=== PATIENT | male | born 1930 | race Two or more races ===

== ENCOUNTER 2018-07-20 19:36 | Emergency (ER) | payer OTHER ==
[~2018-07-20] VITALS: Ht 165.1 cm; Wt 77.1 kg
[2018-07-20 20:15] LABS: BASO # 0.1 x10^3/uL (0.0-0.2); BASO % 1 % (0-3); EOS # 0.1 x10^3/uL (0.0-0.7); EOS % 1 % (0-3); HEMATOCRIT 41.8 % (39.0-53.0); HEMOGLOBIN 14.6 g/dL (13.0-17.5); LYMPH # 1.9 x10^3/uL (1.0-4.8); LYMPH % 28 % (24-48); MEAN CORPUSCULAR HEMOGLOBIN 33 pg (25-35); MEAN CORPUSCULAR HGB CONC 35 g/dL (31-37); MEAN CORPUSCULAR VOLUME 96 fL (79-100); MONO # 0.5 x10^3/uL (0.0-1.1); MONO % 8 % (0-9); NEUT # 4.5 x10^3uL (1.8-7.7); NEUT % 64 % (31-73); PLATELET COUNT 224 x10^3/uL (140-400); RED BLOOD COUNT 4.38 x10^6/uL (4.30-5.70); RED CELL DISTRIBUTION WIDTH 13.8 % (11.5-14.5)
[2018-07-20] MEDS ORDERED: KETOROLAC 30 MG/ML VIAL. IV ONE (20:15)
[2018-07-20] MEDS ORDERED: METOCLOPRAMIDE HCL 10 MG/2 ML VIAL. IV ONE (20:15)
[2018-07-20] MEDS ORDERED: IV NORMAL SALINE 1000ML BAG 1,000 ML IV ONE (20:15)
[2018-07-20] MEDS ORDERED: diphenhydrAMINE 50 MG/ML VIAL IVP ONE (20:15)
[2018-07-20 20:41] LABS: CREATININE 1.2 mg/dL (0.7-1.3); GFR 57.3; POTASSIUM 3.7 mmol/L (3.5-5.1)
[2018-07-20 20:47] LABS: ALBUMIN 3.9 g/dL (3.4-5.0); TOTAL BILIRUBIN 0.5 mg/dL (0.2-1.0)
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
[2018-07-20] MEDS ORDERED: hydrALAZINE 20 MG/ML VIAL. IVP ONE (22:00)
[2018-07-20] MEDS ORDERED: METO10TA81 PO (22:10)
[2018-07-20 22:12] VITALS: BP 221/75
== END 2018-07-20 22:28 | disposition home or self-care (01) ==
LOC: ER 19:36
DX: G43.909 Migraine, unspecified, not intractable, without status migrainosus (principal); I16.0 Hypertensive urgency; I10 Essential (primary) hypertension
CPT/HCPCS: 36415; 70450; 80053; 85025; 96374; 96375; 99285; J0360; J1200; J1885; J2765; J7030

== ENCOUNTER 2020-05-05 16:19 | Observation (INO) | payer MEDICARE, MEDICAID ==
[~2020-05-05] VITALS: Ht 160 cm; Wt 75.8 kg
[~2020-05-05 16:19] MED LIST: METO10TA81 PO
--- NOTE | 2020-05-05 17:15 | NUR ---
The patient, MARSHA IRIZARRY, 89 y/o, M admitted by TARA KUNZ MD, was given written information regarding hospital policies, unit procedures and contact persons. Valuables were checked and left at bedside with significant other. Patient is non Cambodian speaking and significant other is translating at bedside. Attempted to inquiry about medical history and she is not fully aware. Patient is intermittently confused and is unable to answer appropriately. She states that she has his medications in the car and will go get them prior to leaving the hospital. Pgd primary for admission orders. Pending a return call back
[2020-05-05 17:18] VITALS: BP 149/74
[2020-05-05 19:00] VITALS: BP 130/73
[2020-05-05] MEDS ORDERED: DEXTROSE 50% 25 GM / 50ML DISP.SYRIN. IV PRN (19:00)
--- NOTE | 2020-05-05 19:14 | RAD ---
AP chest. HISTORY: CHF AP view was taken of the chest. Heart is normal in size. There is a left pacemaker with a ventricular pacing lead. There is no pneumothorax. There is no pleural effusion. There is metallic artifact on t he left unchanged from an old study. There are no acute infiltrates. The patient has not taken a deep inspiration. IMPRESSION: 1. No acute infiltrates. Electronically signed by: Pankaj De Jesus MD (05/05/2020 7:11 PM) [facility]
--- NOTE | 2020-05-05 19:25 | NUR ---
Pt in bed assessment completed vss poc explained pt denied pain at time of assessment, pt reoriented to surroundings and call light bed alarm set will resume care and continue to monitor pt.
[2020-05-05] MEDS ORDERED: METF500T16 PO (19:26)
[2020-05-05] MEDS ORDERED: SACU1TAB7 PO (19:26)
[2020-05-05] MEDS ORDERED: NITR0.4T22 SL (19:26)
[2020-05-05] MEDS ORDERED: TAMS0.4C97 PO (19:26)
[2020-05-05] MEDS ORDERED: LIPITOR80 MG PO (19:26)
[2020-05-05] MEDS ORDERED: QUET25TA5 PO (19:26)
[2020-05-05] MEDS ORDERED: CLOP75TA PO (19:26)
[2020-05-05] MEDS ORDERED: METO-239 PO (19:26)
[2020-05-05] MEDS ORDERED: NITROGLYCERIN SUBLINGUAL 0.4 MG BOTTLE OF 25. SL PRN (20:00)
--- NOTE | 2020-05-05 20:13 | PDOC ---
Provider Note Date of Service: DATE: 05/05/20 TIME: 20:11 Provider Note Pt admitted from office.H&P dictated.#[id number]. multiple falls at home , Ataxia r/o recent CVA, CAD,DM,systolic heart failure ,BPH. Justifications for Admission Other Justification TARA KUNZ MD May 05, 2020 20:13
--- NOTE | 2020-05-05 21:14 | HP ---
ADMIT DATE: 05/05/2020 REASON FOR ADMISSION TO THE HOSPITAL: Ataxia, multiple falls at home. Family worried that he could have a stroke. HISTORY OF PRESENT ILLNESS: The patient is an 89-year-old male patient has history of a pacemaker, defibrillator, coronary artery disease, cardiac stents and congestive heart failure. He is on Entresto. He has been able to ambulate with a walker, but lately he has fallen 2 times in last 1 week and when he walks he is stumble to one side and the patient's daughter was concerned that he could have a stroke and the patient usually goes to [facility], but was admitted to [facility] for further investigation and treatment, rule out any acute cerebrovascular event. PAST MEDICAL HISTORY: As mentioned above, has history of congestive heart failure. The patient had COVID infection in December. Diabetes, hypertension, hyperlipidemia, BPH, dementia, coronary artery disease and systolic heart failure. PAST SURGICAL HISTORY: Had a hernia repair. Has a pacemaker defibrillator. He has a cardiac stent. ALLERGIES: No known allergies. MEDICATIONS AT HOME: The patient is on metformin 500 mg twice daily, atorvastatin 80 mg daily, Plavix 75 mg daily, metoprolol 25 mg daily, nitro sublingual, Seroquel 25 mg twice a day, Entresto 49/51 mg twice a day and Flomax 0.4 daily. PERSONAL HISTORY: No history of smoking, alcohol or drug abuse at the present time. The patient lives with significant other and he was ambulating with a walker until recently has is in wheelchair level now. REVIEW OF SYSTEMS: More forgetful and weak on one side when he is moving and multiple falls. The patient is answering questions alright. Denies any problem with slurring of the speech. Has some paresthesias, right side. PHYSICAL EXAMINATION: GENERAL: The patient is an elderly Maori-speaking male. VITAL SIGNS: Temperature 97, pulse 75, respirations 18, blood pressure 149/74 and saturating 98 on room air. HEENT: Head is atraumatic. Pupils equal. Oral cavity: No congestion. NECK: Supple. Thyroid not enlarged. JVD slightly elevated, has a pacemaker defibrillator in left-sided chest. CARDIOVASCULAR: S1, S2. LUNGS: Few crackles at the bases, very minimal wheezing. ABDOMEN: Soft, bowel sounds present. EXTERNAL GENITALIA: No Decker. RECTAL: Deferred. EXTREMITIES: No calf tenderness, no edema. The patient is moving upper extremities equally with good strength. Lower extremities, right leg slightly weaker than the left. Did not check ambulation. He is in wheelchair level at this point. NEUROLOGIC: The patient is responding to questions appropriately, though in Maori. LABORATORY DATA: Pending. CT head pending. Chest x-ray: No acute infiltrates. EKG is pending. FINAL IMPRESSION: 1. Multiple falls in last 1 week, possibility of a stroke. 2. Difficulty in mobility, possible ataxia, leaning to one side when he was walking to the restroom as per the family. 3. Diabetes. 4. Hypertension. 5. Chronic systolic heart failure. 6. Coronary artery disease with history of cardiac stents in the past. 7. Presence of pacemaker defibrillator. 8. Systolic heart failure, on Entresto. 9. Benign prostatic hypertrophy. PLAN: At this time, he was admitted to the hospital. CT head. PT, OT. Neurology consultation and cardiac evaluation and see if we can improve his mobility and ambulation. TARA KUNZ MD DR: PORTER/johnna JOB#: [id number] / [id number] TAMMY
[2020-05-05] MEDS: SACUBITRIL/VALSARTAN 49/51MG TABLET. PO SCH (21:41)
[2020-05-05] MEDS: ATORVASTATIN CALCIUM 40 MG TABLET. PO SCH (21:42)
[2020-05-05] MEDS: QUEtiapine 25 MG TABLET. PO SCH (21:42)
[2020-05-05 21:49] LABS: ALBUMIN 3.5 g/dL (3.4-5.0); ALBUMIN/GLOBULIN RATIO 0.9 (1.0-1.7); CALCIUM 8.6 mg/dL (8.5-10.1); CREATININE 1.3 mg/dL (0.7-1.3); MAGNESIUM 2.1 mg/dL (1.8-2.4); POTASSIUM 4.1 mmol/L (3.5-5.1); TOTAL BILIRUBIN 0.6 mg/dL (0.2-1.0); TOTAL PROTEIN 7.3 g/dL (6.4-8.2)
--- NOTE | 2020-05-05 21:51 | EKG ---
[facility] [address] [place] [address] Test Date: 2020-05-05 Test Time: 20:50:45 Pat Name: MARSHA IRIZARRY Department: Room: [facility] Gender: M Slate Handler: : 1930 Requested By: TARA KUNZ Order Number: [id number] Reading MD: Measurements Intervals [place] Rate: 78 P: 34 ID: [id number] QRS: 44 QRSD: 74 T: -9 QT: 370 QTc: 425 Interpretive Statements SINUS ARRHYTHMIA NO SPECIFIC ECG ABNORMALITIES RI6.01 No previous ECG available for comparison
[2020-05-05 23:23] VITALS: BP 116/68
[2020-05-06 03:21] VITALS: BP 140/67
[2020-05-06 04:26] LABS: BILIRUBIN,URINE NEGATIVE (NEG); CLARITY,URINE CLEAR; COLOR,URINE YELLOW; NITRITE,URINE NEGATIVE (NEG); PROTEIN,URINE NEGATIVE (NEG-TRACE); UROBILINOGEN,URINE 0.2 mg/dL (0.2 mg/dL)
[2020-05-06 04:37] LABS: BACTERIA,URINE 0 /HPF (0-FEW); RBC,URINE 0 /HPF (0-2); WBC,URINE 0 /HPF (0-4)
[2020-05-06 05:36] LABS: BASO # 0.1 x10^3/uL (0.0-0.2); BASO % 1 % (0-3); EOS # 0.2 x10^3/uL (0.0-0.7); EOS % 2 % (0-3); HEMOGLOBIN 11.9 g/dL (13.0-17.5); LYMPH # 2.2 x10^3/uL (1.0-4.8); LYMPH % 27 % (24-48); MEAN CORPUSCULAR HEMOGLOBIN 32 pg (25-35); MEAN CORPUSCULAR HGB CONC 34 g/dL (31-37); MEAN CORPUSCULAR VOLUME 95 fL (79-100); MONO # 0.6 x10^3/uL (0.0-1.1); MONO % 8 % (0-9); NEUT # 5.1 x10^3/uL (1.8-7.7); NEUT % 62 % (31-73); PLATELET COUNT 196 x10^3/uL (140-400); RED CELL DISTRIBUTION WIDTH 15.4 % (11.5-14.5); WHITE BLOOD COUNT 8.1 x10^3/uL (4.0-11.0)
[2020-05-06 07:00] VITALS: BP 139/87
[2020-05-06] MEDS ORDERED: CLOPIDOGREL BISULFATE 75 MG TABLET PO SCH (07:00)
[2020-05-06] MEDS: INSULIN LISPRO 300 UNITS/3 ML VIAL. SQ SCH ×3 (08:00→17:00)
--- NOTE | 2020-05-06 08:10 | PDOC ---
PROGRESS NOTES Date of Service: DATE: 05/06/20 TIME: 08:10 Subjective Subjective awake Objective Objective Vital Signs Date Time Temp Pulse Resp B/P (MAP) Pulse Ox O2 Delivery O2 Flow Rate FiO2 05/06/20 03:21 98.4 78 16 140/67 (91) 95 Room Air 98.4 Intake and Output 05/06/20 07:00 Intake Total 0 ml Output Total 400 ml Balance -400 ml Intake Oral 0 ml Output Urine Total 400 ml Physical Exam Abdomen: Soft Heart: Normal S1, Normal S2 Extremities: No clubbing General: Alert HEENT: Atraumatic Lungs: Clear to auscultation MUSCULOSKELETAL: No deformity Neuro: Normal speech Skin: No breakdown Assessment Assessment FINAL IMPRESSION: 1. Multiple falls in last 1 week, possibility of a stroke. 2. Difficulty in mobility, possible ataxia, leaning to one side when he was walking to the restroom as per the family. 3. Diabetes. 4. Hypertension. 5. Chronic systolic heart failure. 6. Coronary artery disease with history of cardiac stents in the past. 7. Presence of pacemaker defibrillator. 8. Systolic heart failure, on Entresto. 9. Benign prostatic hypertrophy. PLAN: CT head done today. neurology +cardiology consult Rehab consult dr peraza. labs good cxr ok . At this time, he was admitted to the hospital. CT head. PT, OT. Neurology consultation and cardiac evaluation and see if we can improve his mobility and ambulation. Comment Review of Relevant I have reviewed the following items peter (where applicable) has been applied. Labs Laboratory Tests Test 05/05/20 20:35 05/05/20 21:40 05/06/20 02:20 05/06/20 05:00 Sodium Level 136 mmol/L (136-145) Potassium Level 4.1 mmol/L (3.5-5.1) Chloride Level 102 mmol/L (98-107) Carbon Dioxide Level 27 mmol/L (21-32) Anion Gap 7 (6-14) Blood Urea Nitrogen 16 mg/dL (8-26) Creatinine 1.3 mg/dL (0.7-1.3) Estimated GFR (Cockcroft-Gault) 52.0 BUN/Creatinine Ratio 12 (6-20) Glucose Level 167 mg/dL (70-99) Calcium Level 8.6 mg/dL (8.5-10.1) Magnesium Level 2.1 mg/dL (1.8-2.4) Total Bilirubin 0.6 mg/dL (0.2-1.0) Aspartate Amino Transf (AST/SGOT) 20 U/L (15-37) Alanine Aminotransferase (ALT/SGPT) 31 U/L (16-63) Alkaline Phosphatase 71 U/L (46-116) Total Protein 7.3 g/dL (6.4-8.2) Albumin 3.5 g/dL (3.4-5.0) Albumin/Globulin Ratio 0.9 (1.0-1.7) Glucose (Fingerstick) 162 mg/dL (70-99) Urine Collection Type Unknown Urine Color Yellow Urine Clarity Clear Urine pH 6.0 (<5.0-8.0) Urine Specific [place] 1.015 (1.000-1.030) Urine Protein Negative mg/dL (NEG-TRACE) Urine Glucose (UA) Negative mg/dL (NEG) Urine Ketones (Stick) Negative mg/dL (NEG) Urine Blood Negative (NEG) Urine Nitrite Negative (NEG) Urine Bilirubin Negative (NEG) Urine Urobilinogen Dipstick 0.2 mg/dL (0.2 mg/dL) Urine Leukocyte Esterase Negative (NEG) Urine RBC 0 /HPF (0-2) Urine WBC 0 /HPF (0-4) Urine Squamous Epithelial Cells Occ /LPF Urine Bacteria 0 /HPF (0-FEW) Urine Mucus Slight /LPF White Blood Count 8.1 x10^3/uL (4.0-11.0) Red Blood Count 3.70 x10^6/uL (4.30-5.70) Hemoglobin 11.9 g/dL (13.0-17.5) Hematocrit 35.0 % (39.0-53.0) Mean Corpuscular Volume 95 fL (79-100) Mean Corpuscular Hemoglobin 32 pg (25-35) Mean Corpuscular Hemoglobin Concent 34 g/dL (31-37) Red Cell Distribution Width 15.4 % (11.5-14.5) Platelet Count 196 x10^3/uL (140-400) Neutrophils (%) (Auto) 62 % (31-73) Lymphocytes (%) (Auto) 27 % (24-48) Monocytes (%) (Auto) 8 % (0-9) Eosinophils (%) (Auto) 2 % (0-3) Basophils (%) (Auto) 1 % (0-3) Neutrophils # (Auto) 5.1 x10^3/uL (1.8-7.7) Lymphocytes # (Auto) 2.2 x10^3/uL (1.0-4.8) Monocytes # (Auto) 0.6 x10^3/uL (0.0-1.1) Eosinophils # (Auto) 0.2 x10^3/uL (0.0-0.7) Basophils # (Auto) 0.1 x10^3/uL (0.0-0.2) Test 05/06/20 07:50 Glucose (Fingerstick) 140 mg/dL (70-99) Medications Current Medications Atorvastatin Calcium (Lipitor) 80 mg QHS PO Last administered on 05/05/20at 21:42; Start 05/05/20 at 21:00 Clopidogrel Bisulfate (Plavix) 75 mg DAILY PO ; Start 05/06/20 at 09:00 Clopidogrel Bisulfate (Plavix) 75 mg DAILY07 PO ; Start 05/06/20 at 07:00; Stop 05/05/20 at 21:05; Status DC Dextrose (Dextrose 50%-Water Syringe) 12.5 gm PRN Q15MIN PRN IV SEE COMMENTS; Start 05/05/20 at 19:00 Insulin Human Lispro (HumaLOG) 0-7 UNITS TIDWMEALS SQ ; Start 05/06/20 at 08:00 Metoprolol Succinate (Toprol Xl) 75 mg DAILY PO ; Start 05/06/20 at 09:00 Nitroglycerin (Nitrostat) 0.4 mg PRN Q5MIN PRN SL CHEST PAIN; Start 05/05/20 at 20:00 Quetiapine Fumarate (SEROquel) 25 mg BID PO Last administered on 05/05/20at 21:42; Start 05/05/20 at 21:00 Sacubitril/ Valsartan (Entresto 49 Mg-51 Mg) 1 tab BID PO Last administered on 05/05/20at 21:41; Start 05/05/20 at 21:00 Tamsulosin HCl (Flomax) 0.4 mg DAILY PO ; Start 05/06/20 at 09:00 Vitals/I & O Vital Sign - Last 24 Hours 05/05/20 05/05/20 05/05/20 05/05/20 17:18 19:00 19:25 21:41 Temp 97.9 98.5 97.9 98.5 Pulse 75 97 97 Resp 18 18 B/P (MAP) 149/74 (99) 130/73 (92) 130/73 Pulse Ox 98 95 O2 Delivery Room Air Room Air Room Air 05/05/20 05/06/20 23:23 03:21 Temp 98.4 98.4 98.4 98.4 Pulse 71 78 Resp 16 16 B/P (MAP) 116/68 (84) 140/67 (91) Pulse Ox 96 95 O2 Delivery Room Air Room Air Intake and Output 05/05/20 05/05/20 05/06/20 15:00 23:00 07:00 Intake Total 0 ml Output Total 400 ml Balance -400 ml Justifications for Admission Other Justification TARA KUNZ MD May 06, 2020 08:10
[2020-05-06 09:09] LABS: CHOLESTEROL/HDL RATIO 2.6
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
[2020-05-06] MEDS: SACUBITRIL/VALSARTAN 49/51MG TABLET. PO SCH ×2 (09:37→21:16)
[2020-05-06] MEDS: TAMSULOSIN 0.4 MG CAP.ER.24H. PO SCH (09:37)
[2020-05-06] MEDS: QUEtiapine 25 MG TABLET. PO SCH ×2 (09:37→21:16)
[2020-05-06] MEDS: CLOPIDOGREL BISULFATE 75 MG TABLET PO SCH (09:37)
[2020-05-06] MEDS: METOPROLOL SUCC 24HR ER 25 MG TAB.ER.24H. PO SCH (09:38)
[2020-05-06 11:00] VITALS: BP 107/66
--- NOTE | 2020-05-06 11:03 | PDOC2 ---
MOISES GRIMALDO ELIGIBILITY CONSULTANT 05/06/20 1103: CARDIAC CONSULT DATE OF CONSULT Date of Consult DATE: 05/06/20 TIME: 10:34 REASON FOR CONSULT Reason for Consult: CHF REFERRING PHYSICIAN Referring Physician: Gale SOURCE Source: Chart review, Patient HISTORY OF PRESENT ILLNESS HISTORY OF PRESENT ILLNESS This is a pleasant 89 yo male admitted for complains fall. He is a poor historian that rambles and stutters a lot. Pt is currently chest pain free but have some soreness to his right shoulder particularly with palpation but no issues with ROM. No SOA, no leg edema. No nausea or vomiting. He has fallen 2 ti mes in the last week and from what was described possible weakness and gait instability. No unilateral neuro symptoms per se and able to follow instructions during physical evaluation. He is being workup pfor any potential stroke and neurology has been consulted. He sees [facility]. No apparent report of syncope or cardiac symptoms. PAST MEDICAL HISTORY Cardiovascular: CAD, CHF, HTN, Hyperlipidemia, Other (cardiomyopathy; LE PAD) Pulmonary: Other (covid-19 02/16/2020) CENTRAL NERVOUS SYSTEM: Dementia Hepatobiliary: No pertinent hx Psych: Anxiety Musculoskeletal: Osteoarthritis Rheumatologic: No pertinent hx Infectious disease: No pertinent hx ENT: No pertinent hx Renal/: Acute renal failure, Benign prostatic enlarg. Endocrine: Diabetes (2) Dermatology: No pertinent hx PAST SURGICAL HISTORY Past Surgical History: Pacemaker (AICD), Other (PCI) FAMILY HISTORY Family History: Family History Unknown SOCIAL HISTORY Smoke: No ALCOHOL: none Drugs: None Lives: with Family CURRENT MEDICATIONS CURRENT MEDICATIONS Current Medications Medications (Trade) Dose Ordered Sig/Mendoza Route PRN Reason Start Time Stop Time Status Last Admin Dose Admin Metoprolol Succinate (Toprol Xl) 75 mg DAILY PO 05/06/20 09:00 05/06/20 09:38 Quetiapine Fumarate (SEROquel) 25 mg BID PO 05/05/20 21:00 05/06/20 09:37 Sacubitril/ Valsartan (Entresto 49 Mg-51 Mg) 1 tab BID PO 05/05/20 21:00 05/06/20 09:37 Tamsulosin HCl (Flomax) 0.4 mg DAILY PO 05/06/20 09:00 05/06/20 09:37 Atorvastatin Calcium (Lipitor) 80 mg QHS PO 05/05/20 21:00 05/05/20 21:42 Clopidogrel Bisulfate (Plavix) 75 mg DAILY PO 05/06/20 09:00 05/06/20 09:37 ALLERGIES ALLERGIES: Coded Allergies: No Known Drug Allergies (Unverified , 07/20/18) ROS Review of System limited due to language barrier and speech issues and cognitive impairment PHYSICAL EXAM General: Alert, Cooperative, No acute distress HEENT: Atraumatic, Mucous membr. moist/pink Lungs: Clear to auscultation, Normal air movement Heart: Regular rate (SR), Normal S1, Normal S2, Other (2/6 systolic murmur to LLS border) Abdomen: Soft, No tenderness Extremities: No cyanosis, No edema Skin: No breakdown, No significant lesion Neuro: Normal tone, Sensation intact Psych/Mental Status: Other (rambles, stutter speech) MUSCULOSKELETAL: Osteoarthritic changes both hands VITALS/I&O VITALS/I&O: Vital Signs Date Time Temp Pulse Resp B/P (MAP) Pulse Ox O2 Delivery O2 Flow Rate FiO2 05/06/20 09:38 77 139/87 05/06/20 07:00 97.5 16 93 Room Air 97.5 I & O 05/05/20 05/05/20 05/06/20 15:00 23:00 07:00 Intake Total 0 ml Output Total 400 ml Balance -400 ml LABS Lab: Laboratory Tests Test 05/05/20 20:35 05/05/20 21:40 05/06/20 02:20 05/06/20 05:00 Sodium Level 136 mmol/L (136-145) Potassium Level 4.1 mmol/L (3.5-5.1) Chloride Level 102 mmol/L (98-107) Carbon Dioxide Level 27 mmol/L (21-32) Anion Gap 7 (6-14) Blood Urea Nitrogen 16 mg/dL (8-26) Creatinine 1.3 mg/dL (0.7-1.3) Estimated GFR (Cockcroft-Gault) 52.0 BUN/Creatinine Ratio 12 (6-20) Glucose Level 167 mg/dL (70-99) H Calcium Level 8.6 mg/dL (8.5-10.1) Magnesium Level 2.1 mg/dL (1.8-2.4) Total Bilirubin 0.6 mg/dL (0.2-1.0) Aspartate Amino Transferase (AST) 20 U/L (15-37) Alanine Aminotransferase (ALT) 31 U/L (16-63) Alkaline Phosphatase 71 U/L (46-116) Total Protein 7.3 g/dL (6.4-8.2) Albumin 3.5 g/dL (3.4-5.0) Albumin/Globulin Ratio 0.9 (1.0-1.7) L Glucose (Fingerstick) 162 mg/dL (70-99) H Urine Collection Type Unknown Urine Color Yellow Urine Clarity Clear Urine pH 6.0 (<5.0-8.0) Urine Specific [place] 1.015 (1.000-1.030) Urine Protein Negative mg/dL (NEG-TRACE) Urine Glucose (UA) Negative mg/dL (NEG) Urine Ketones (Stick) Negative mg/dL (NEG) Urine Blood Negative (NEG) Urine Nitrite Negative (NEG) Urine Bilirubin Negative (NEG) Urine Urobilinogen Dipstick 0.2 mg/dL (0.2 mg/dL) Urine Leukocyte Esterase Negative (NEG) Urine RBC 0 /HPF (0-2) Urine WBC 0 /HPF (0-4) Urine Squamous Epithelial Cells Occ /LPF Urine Bacteria 0 /HPF (0-FEW) Urine Mucus Slight /LPF White Blood Count 8.1 x10^3/uL (4.0-11.0) Red Blood Count 3.70 x10^6/uL (4.30-5.70) L Hemoglobin 11.9 g/dL (13.0-17.5) L Hematocrit 35.0 % (39.0-53.0) L Mean Corpuscular Volume 95 fL (79-100) Mean Corpuscular Hemoglobin 32 pg (25-35) Mean Corpuscular Hemoglobin Concent 34 g/dL (31-37) Red Cell Distribution Width 15.4 % (11.5-14.5) H Platelet Count 196 x10^3/uL (140-400) Neutrophils (%) (Auto) 62 % (31-73) Lymphocytes (%) (Auto) 27 % (24-48) Monocytes (%) (Auto) 8 % (0-9) Eosinophils (%) (Auto) 2 % (0-3) Basophils (%) (Auto) 1 % (0-3) Neutrophils # (Auto) 5.1 x10^3/uL (1.8-7.7) Lymphocytes # (Auto) 2.2 x10^3/uL (1.0-4.8) Monocytes # (Auto) 0.6 x10^3/uL (0.0-1.1) Eosinophils # (Auto) 0.2 x10^3/uL (0.0-0.7) Basophils # (Auto) 0.1 x10^3/uL (0.0-0.2) BR-Deh-X-Type Natriuretic Peptide 125 pg/mL (0-449) Triglycerides Level 103 mg/dL (0-150) Cholesterol Level 92 mg/dL (0-200) LDL Cholesterol, Calculated 35 mg/dL (0-100) VLDL Cholesterol, Calculated 21 mg/dL (0-40) Non-HDL Cholesterol Calculated 56 mg/dL (0-129) HDL Cholesterol 36 mg/dL (40-60) L Cholesterol/HDL Ratio 2.6 Test 05/06/20 07:50 Glucose (Fingerstick) 140 mg/dL (70-99) H Laboratory Tests 05/06/20 05:00 Laboratory Tests 05/05/20 20:35 ECHOCARDIOGRAM ECHOCARDIOGRAM 06/13/2019 Technically difficult study; i.v. transpulmonary contrast was used to define the endocardial borders. Severely reduced left ventricular systolic function, estimated ejection fraction is 30%, global hypokinesis. Grade I (mild) left ventricular diastolic dysfunction. There is mild mitral annular calcification without stenosis. Mild mitral valve regurgitation, trace tricuspid valve regurgitation. The pulmonary artery pressure could not be obtained. HEART CATH HEART CATH 2004 - s/p PCI x 3 at [facility] 03/04/2019 - Cardiac Cathterization: Severe coronary disease involving mid LAD, 1st diagonal, and 2nd obtuse marginal branch. Successful PCI of mid LAD using 2.75 mm x 23 mm ROBBY. Successful PCI of 2nd obtuse marginal branch with 2.75 mm x 18 mm ROBBY. Elevated LVEDP ASSESSMENT/PLAN ASSESSMENT/PLAN 1. Nontraumatic fall: no reported syncope. Possibly from ataxia 2. AICD in situ: medtronic. VVI 3. PSVT: rare episode otherwise maintaining SR 4. Suspect vascular dementia 5. ICM: Prior EF at 30-35% 6. CAD; prior stents. see report. clinicallys table 7. Chronic combined systolic/diastolic CHF: Class 3, compensated 8. DM2: per PCP 9. HTN: controlled 10. HLP: LDL on goal 11. Recovered Covid-19: 02/16/2020 12. 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 Continue HF home medications 2. Secondary preventiion measures. Continue plavix 3. Interrogate device and note any associated arrhythmia in relation to fall. 4. TSH, CK. TTE. Consult neurology ADITI SUN MD 05/06/202058: CARDIAC CONSULT ASSESSMENT/PLAN ASSESSMENT/PLAN Patient seen and examined. Agree with LANG PATH THERAPIST's assessment and plan. Fall probably from imbalance, not a good historian but no definite history of syncope h/o PSVT, maintaining SR, tele without any significant arrhythmias Chronic systolic HF well compensated CAD clinically stable Agree with ICD interrogation to look for any recorded arrhythmias Thank you for your consultation MOISES GRIMALDO APRN May 06, 2020 11:03 ADITI SUN MD May 06, 2020 20:59
--- NOTE | 2020-05-06 12:43 | NUR ---
SS following for discharge planning. SS reviewed pt chart and discussed with pt RN. Pt is from home with girlfriend and is currently on room air. Pt COVID19 recovered from December of 2019. PT/OT ordered. Cardiology and Neurology consulted. ECHO ordered. PT recommended home with home healthcare. Pt is Tuvaluan speaking only. Nurse navigator from [facility] contacting pt's family to discuss home healthcare. SS will continue to follow for discharge planning.
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
[2020-05-06] MEDS: LEVOTHYROXINE 50 MCG TABLET PO SCH (14:01)
--- NOTE | 2020-05-06 14:23 | CONS ---
DATE OF CONSULTATION: LOCATION: He is in room 206. ATTENDING PHYSICIAN: Catrina Beasley MD REASON FOR CONSULTATION: The patient was seen at the request of Dr. Beasley for rehab evaluation. HISTORY OF PRESENT ILLNESS: This is an 89-year-old male, retired bus driver school. The patient with known diabetes mellitus, hypertension, hyperlipidemia, benign prostatic hypertrophy, dementia, coronary artery disease, systolic heart failure, had a COVID infection in 12/2019, also had permanent pacemaker with defibrillator placement for coronary artery disease, status post coronary artery stenting. He has been getting around and taking care of himself. He lives with his , had no steps to enter the house, but had steps to go down to the basement. The patient apparently having some right-sided neck and shoulder area pain going on for about a year. He lately has been falling a few times, fell 2 times last week and when he walks, he is stumbling on to one side. Family is concerned that he could have a stroke. He usually [facility], was admitted to [facility] for further evaluation and treatment to rule out cerebrovascular accident and CT scan of the brain done on 05/05/2020, revealed no acute findings. It revealed interval development of left frontoparietal infarct, nonacute, when compared to the CT scan done on 07/20/2018. Chest x-ray failed to reveal any acute abnormalities. The patient denies any trouble with his bowel or bladder control. He admits some numbness in his right upper extremity, which has been present for a while. The patient is not known allergic to any medication. The patient is status post hernia repair. PHYSICAL EXAMINATION: On physical examination today revealed an elderly male. He is alert, oriented to time, place, person and circumstance. Follows commands appropriately. He had some pain on range of motion of cervical spine, tenderness to palpation over right cervical paraspinal muscles, extending over to right posterior shoulder girdle muscles. He had relatively decreased sensory perception over proximal part of right upper extremity. Deep tendon reflexes are 2+ and symmetrical and he had no difficulty with bed mobility and transfers. Once up, he can walk with a walker and when walked without roller walker and on his tippy toes, he has some difficulty to walk on his heels and one foot in front of other. His skin is intact at this time. ASSESSMENT: Elderly male with recent falls. No evidence of ongoing cerebrovascular accident. 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 The patient with known coronary artery disease, status post stenting and also permanent pacemaker with defibrillator placement, congestive heart failure, hypertension, hyperlipidemia, benign prostatic hypertrophy, history of dementia and COVID-19 infection in 12/2019. RECOMMENDATIONS: Home when medically stable. With home health or outpatient physical therapy follow up to help his neck and shoulder area discomfort. To obtain CT scan of cervical vertebrae to rule out any significant changes of cervical vertebrae like cervical spinal stenosis. Unfortunately, because of his pacemaker and defibrillator, he is not a candidate for MRI scan. Dr. Beasley, I appreciate asking me to participate in the care of this interesting patient. I will be glad to see him for followup with you on as needed basis. ALICE ORDONEZ MD DR: YUDELKA/johnna JOB#: [id number] / [id number]
[2020-05-06] MEDS ORDERED: SPIR25TA5 PO (14:32)
[2020-05-06 15:00] VITALS: BP 109/58
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
--- NOTE | 2020-05-06 18:04 | RAD ---
Exam: Ultrasound bilateral carotid duplex Indication: Ataxia, possible CVA Technique: Real-time grayscale and color Doppler images of the carotids were obtained by the [facility] foreign agent. Comparisons: None FINDINGS: Peak systolic velocity as follows: Right: Common carotid artery: 93 cm/s Internal carotid artery: 53 cm/s mid and distal portions of the internal carotid artery are not visua lized. External carotid artery: 45 cm/s Left: Common carotid artery: 58 cm/s Internal carotid artery: Nonvisualized secondary to positioning External carotid artery: Nonvisualized secondary to positioning. Extensive plaque is noted throughout the visualized carotid vasculature bilaterally. IMPRESSION: 1. Limited evaluation secondary to anatomical location of carotid bifurcations 2. There is extensive atherosclerotic plaque bilaterally. Consider CTA or MRA for further evaluation . Electronically signed by: Marialuisa Nichols MD (05/06/2020 6:01 PM) BERENICE
[2020-05-06 19:23] VITALS: BP 160/91
[2020-05-06] MEDS: ATORVASTATIN CALCIUM 40 MG TABLET. PO SCH (21:16)
[2020-05-06 22:04] VITALS: BP 156/84
[2020-05-07 03:44] VITALS: BP 115/67
[2020-05-07] MEDS: LEVOTHYROXINE 50 MCG TABLET PO SCH (06:01)
[2020-05-07] MEDS ORDERED: PERFLUTREN PROTEIN-A MICROSPHR 0.22 MG/ML 3 ML VIAL. IV ONE (07:34)
[2020-05-07 07:51] VITALS: BP 176/87
[2020-05-07] MEDS: INSULIN LISPRO 300 UNITS/3 ML VIAL. SQ SCH ×2 (08:00→12:00)
--- NOTE | 2020-05-07 08:11 | PDOC ---
PROGRESS NOTES Date of Service: DATE: 05/07/20 TIME: 08:10 Subjective Subjective want to go home Objective Objective Vital Signs Date Time Temp Pulse Resp B/P (MAP) Pulse Ox O2 Delivery O2 Flow Rate FiO2 05/07/20 07:51 97.9 79 16 176/87 (116) 97 Room Air 97.9 Intake and Output 05/07/20 07:00 Intake Total 640 ml Balance 640 ml Intake Oral 640 ml # Voids 4 Physical Exam Abdomen: Soft, No tenderness Heart: Regular rate (SR), Normal S1, Normal S2, Other (2/6 systolic murmur to LLS border) Extremities: No cyanosis, No edema General: Alert, Cooperative, No acute distress HEENT: Atraumatic, Mucous membr. moist/pink Lungs: Clear to auscultation, Normal air movement MUSCULOSKELETAL: Osteoarthritic changes both hands Neuro: Normal tone, Sensation intact Psych/Mental Status: Other (rambles, stutter speech) Skin: No breakdown, No significant lesion Assessment Assessment FINAL IMPRESSION: 1. Multiple falls in last 1 week, possibility of a stroke. 2. Difficulty in mobility, possible ataxia, leaning to one side when he was walking to the restroom as per the family. 3. Diabetes. 4. Hypertension. 5. Chronic systolic heart failure. 6. Coronary artery disease with history of cardiac stents in the past. 7. Presence of pacemaker defibrillator. 8. Systolic heart failure, on Entresto. 9. Benign prostatic hypertrophy. 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 labs good cxr ok . Not able to do MRI due to AICD d/c home with home health Comment Review of Relevant I have reviewed the following items peter (where applicable) has been applied. Labs Laboratory Tests Test 05/06/20 16:39 05/06/20 21:15 05/07/20 07:55 Glucose (Fingerstick) 128 mg/dL (70-99) 148 mg/dL (70-99) 129 mg/dL (70-99) Medications Current Medications Clopidogrel Bisulfate (Plavix) 75 mg DAILY PO Last administered on 05/06/20at 09:37; Start 05/06/20 at 09:00 Levothyroxine Sodium (Synthroid) 50 mcg DAILY06 PO Last administered on 05/07/20at 06:01; Start 05/06/20 at 13:30 Metoprolol Succinate (Toprol Xl) 75 mg DAILY PO Last administered on 05/06/20at 09:38; Start 05/06/20 at 09:00 Perflutren Protein Type A Microsphe (Optison) 0.66 mg STK-MED ONCE IV ; Start 05/07/20 at 07:34; Stop 05/07/20 at 07:34; Status DC Tamsulosin HCl (Flomax) 0.4 mg DAILY PO Last administered on 05/06/20at 09:37; Start 05/06/20 at 09:00 Vitals/I & O Vital Sign - Last 24 Hours 05/06/20 05/06/20 05/06/20 05/06/20 09:37 09:38 11:00 15:00 Temp 97.5 97.8 97.5 97.8 Pulse 77 77 75 78 Resp 16 16 B/P (MAP) 139/87 139/87 107/66 (80) 109/58 (75) Pulse Ox 98 97 O2 Delivery Room Air Room Air 05/06/20 05/06/20 05/06/20 05/06/20 19:23 19:30 21:16 22:04 Temp 98.5 98.2 98.5 98.2 Pulse 95 95 80 Resp 16 18 B/P (MAP) 160/91 (114) 160/91 156/84 (108) Pulse Ox 96 96 O2 Delivery Room Air Room Air Room Air 05/07/20 05/07/20 03:44 07:51 Temp 97.7 97.9 97.7 97.9 Pulse 75 79 Resp 16 16 B/P (MAP) 115/67 (83) 176/87 (116) Pulse Ox 98 97 O2 Delivery Room Air Room Air Intake and Output 05/06/20 05/06/20 05/07/20 15:00 23:00 07:00 Intake Total 100 ml 540 ml Balance 100 ml 540 ml Justifications for Admission Other Justification TARA KUNZ MD May 07, 2020 08:11
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
--- NOTE | 2020-05-07 09:14 | PDOC ---
PROGRESS NOTES Date of Service DATE: 05/07/20 TIME: 09:10 Subjective Subjective No new complaints. Objective Objective Vital Signs Date Time Temp Pulse Resp B/P (MAP) Pulse Ox O2 Delivery O2 Flow Rate FiO2 05/07/20 07:51 97.9 79 16 176/87 (116) 97 Room Air 97.9 Intake and Output 05/07/20 07:00 Intake Total 640 ml Balance 640 ml Intake Oral 640 ml # Voids 4 Physical Exam Physical Exam He is getting echocardiogram at present and his family at bedside and he had multi level DDD and DJD with some degree of neural foraminal compromise as for CT cervical vertebrae. Plan Plan of [facility] with home health physical therapy follow up to work on his neck and right shoulder area pain and safety with mobility including advanced transfers. Comment Review of Relevant I have reviewed the following items peter (where applicable) has been applied. Labs Laboratory Tests Test 05/05/20 20:35 05/05/20 21:40 05/06/20 02:20 05/06/20 05:00 Sodium Level 136 mmol/L (136-145) Potassium Level 4.1 mmol/L (3.5-5.1) Chloride Level 102 mmol/L (98-107) Carbon Dioxide Level 27 mmol/L (21-32) Anion Gap 7 (6-14) Blood Urea Nitrogen 16 mg/dL (8-26) Creatinine 1.3 mg/dL (0.7-1.3) Estimated GFR (Cockcroft-Gault) 52.0 BUN/Creatinine Ratio 12 (6-20) Glucose Level 167 mg/dL (70-99) Calcium Level 8.6 mg/dL (8.5-10.1) Magnesium Level 2.1 mg/dL (1.8-2.4) Total Bilirubin 0.6 mg/dL (0.2-1.0) Aspartate Amino Transf (AST/SGOT) 20 U/L (15-37) Alanine Aminotransferase (ALT/SGPT) 31 U/L (16-63) Alkaline Phosphatase 71 U/L (46-116) Total Protein 7.3 g/dL (6.4-8.2) Albumin 3.5 g/dL (3.4-5.0) Albumin/Globulin Ratio 0.9 (1.0-1.7) Glucose (Fingerstick) 162 mg/dL (70-99) Urine Collection Type Unknown Urine Color Yellow Urine Clarity Clear Urine pH 6.0 (<5.0-8.0) Urine Specific [place] 1.015 (1.000-1.030) Urine Protein Negative mg/dL (NEG-TRACE) Urine Glucose (UA) Negative mg/dL (NEG) Urine Ketones (Stick) Negative mg/dL (NEG) Urine Blood Negative (NEG) Urine Nitrite Negative (NEG) Urine Bilirubin Negative (NEG) Urine Urobilinogen Dipstick 0.2 mg/dL (0.2 mg/dL) Urine Leukocyte Esterase Negative (NEG) Urine RBC 0 /HPF (0-2) Urine WBC 0 /HPF (0-4) Urine Squamous Epithelial Cells Occ /LPF Urine Bacteria 0 /HPF (0-FEW) Urine Mucus Slight /LPF White Blood Count 8.1 x10^3/uL (4.0-11.0) Red Blood Count 3.70 x10^6/uL (4.30-5.70) Hemoglobin 11.9 g/dL (13.0-17.5) Hematocrit 35.0 % (39.0-53.0) Mean Corpuscular Volume 95 fL (79-100) Mean Corpuscular Hemoglobin 32 pg (25-35) Mean Corpuscular Hemoglobin Concent 34 g/dL (31-37) Red Cell Distribution Width 15.4 % (11.5-14.5) Platelet Count 196 x10^3/uL (140-400) Neutrophils (%) (Auto) 62 % (31-73) Lymphocytes (%) (Auto) 27 % (24-48) Monocytes (%) (Auto) 8 % (0-9) Eosinophils (%) (Auto) 2 % (0-3) Basophils (%) (Auto) 1 % (0-3) Neutrophils # (Auto) 5.1 x10^3/uL (1.8-7.7) Lymphocytes # (Auto) 2.2 x10^3/uL (1.0-4.8) Monocytes # (Auto) 0.6 x10^3/uL (0.0-1.1) Eosinophils # (Auto) 0.2 x10^3/uL (0.0-0.7) Basophils # (Auto) 0.1 x10^3/uL (0.0-0.2) Creatine Kinase 81 U/L (39-308) [id number] Natriuretic Peptide 125 pg/mL (0-449) Triglycerides Level 103 mg/dL (0-150) Cholesterol Level 92 mg/dL (0-200) LDL Cholesterol, Calculated 35 mg/dL (0-100) VLDL Cholesterol, Calculated 21 mg/dL (0-40) Non-HDL Cholesterol Calculated 56 mg/dL (0-129) HDL Cholesterol 36 mg/dL (40-60) Cholesterol/HDL Ratio 2.6 Thyroid Stimulating Hormone (TSH) 28.903 uIU/mL (0.358-3.74) Test 05/06/20 07:50 05/06/20 16:39 05/06/20 21:15 05/07/20 06:10 Glucose (Fingerstick) 140 mg/dL (70-99) 128 mg/dL (70-99) 148 mg/dL (70-99) C-Reactive Protein, Quantitative < 0.5 mg/L (0-3.3) Test 05/07/20 07:55 Glucose (Fingerstick) 129 mg/dL (70-99) Laboratory Tests Test 05/06/20 16:39 05/06/20 21:15 05/07/20 06:10 05/07/20 07:55 Glucose (Fingerstick) 128 mg/dL (70-99) 148 mg/dL (70-99) 129 mg/dL (70-99) C-Reactive Protein, Quantitative < 0.5 mg/L (0-3.3) Medications Current Medications Insulin Human Lispro (HumaLOG) 0-7 UNITS TIDWMEALS SQ ; Start 05/06/20 at 08:00 Dextrose (Dextrose 50%-Water Syringe) 12.5 gm PRN Q15MIN PRN IV SEE COMMENTS; Start 05/05/20 at 19:00 Clopidogrel Bisulfate (Plavix) 75 mg DAILY07 PO ; Start 05/06/20 at 07:00; Stop 05/05/20 at 21:05; Status DC Metoprolol Succinate (Toprol Xl) 75 mg DAILY PO Last administered on 05/06/20at 09:38; Start 05/06/20 at 09:00 Nitroglycerin (Nitrostat) 0.4 mg PRN Q5MIN PRN SL CHEST PAIN; Start 05/05/20 at 20:00 Quetiapine Fumarate (SEROquel) 25 mg BID PO Last administered on 05/06/20at 2 1:16; Start 05/05/20 at 21:00 Sacubitril/ Valsartan (Entresto 49 Mg-51 Mg) 1 tab BID PO Last administered on 05/06/20at 21:16; Start 05/05/20 at 21:00 Tamsulosin HCl (Flomax) 0.4 mg DAILY PO Last administered on 05/06/20at 09:37; Start 05/06/20 at 09:00 Atorvastatin Calcium (Lipitor) 80 mg QHS PO Last administered on 05/06/20at 21:16; Start 05/05/20 at 21:00 Clopidogrel Bisulfate (Plavix) 75 mg DAILY PO Last administered on 05/06/20at 09:37; Start 05/06/20 at 09:00 Levothyroxine Sodium (Synthroid) 50 mcg DAILY06 PO Last administered on 05/07/20at 06:01; Start 05/06/20 at 13:30 Perflutren Protein Type A Microsphe (Optison) 0.66 mg STK-MED ONCE IV ; Start 05/07/20 at 07:34; Stop 05/07/20 at 07:34; Status DC Active Scripts Active Reported Spironolactone 25 Mg Tablet 25 Mg PO DAILY NITROGLYCERIN SubLingual (Nitroglycerin) 0.4 Mg Tab.subl 0.4 Mg SL PRN Q5MIN PRN Lipitor (Atorvastatin Calcium) 80 Mg Tablet 80 Mg PO HS Clopidogrel (Clopidogrel Bisulfate) 75 Mg Tablet 75 Mg PO DAILY Metformin Hcl 500 Mg Tablet 500 Mg PO BIDWMEALS Metoprolol Succinate ( Xl ) (Metoprolol Succinate) 25 Mg Tab.er.24h 75 Mg PO DA ROLDAN Entresto 49 mg-51 mg Tablet (Sacubitril/Valsartan) 1 Each Tablet 1 Each PO BID Flomax (Tamsulosin Hcl) 0.4 Mg Cap.er.24h 0.4 Mg PO DAILY Seroquel (Quetiapine Fumarate) 25 Mg Tablet 25 Mg PO BID Vitals/I & O Vital Sign - Last 24 Hours 05/06/20 05/06/20 05/06/20 05/06/20 09:37 09:38 11:00 15:00 Temp 97.5 97.8 97.5 97.8 Pulse 77 77 75 78 Resp 16 16 B/P (MAP) 139/87 139/87 107/66 (80) 109/58 (75) Pulse Ox 98 97 O2 Delivery Room Air Room Air 05/06/20 05/06/20 05/06/20 05/06/20 19:23 19:30 21:16 22:04 Temp 98.5 98.2 98.5 98.2 Pulse 95 95 80 Resp 16 18 B/P (MAP) 160/91 (114) 160/91 156/84 (108) Pulse Ox 96 96 O2 Delivery Room Air Room Air Room Air 05/07/20 05/07/20 03:44 07:51 Temp 97.7 97.9 97.7 97.9 Pulse 75 79 Resp 16 16 B/P (MAP) 115/67 (83) 176/87 (116) Pulse Ox 98 97 O2 Delivery Room Air Room Air Intake and Output 05/06/20 05/06/20 05/07/20 15:00 23:00 07:00 Intake Total 100 ml 540 ml Balance 100 ml 540 ml Justifications for Admission Other Justification ALICE ORDONEZ MD May 07, 2020 09:14
[2020-05-07] MEDS ORDERED: LEVO50TA5 PO (09:16)
--- NOTE | 2020-05-07 09:17 | SNU/HH DC ---
DISCHARGE WITH HOME HEALTH DISCHARGE INFORMATION: Discharge Date: May 07, 2020 Condition on Discharge: Stable CODE STATUS: Code Status: Full HOME HEALTH: Face to Face: I certify this patient is under my care and that I, or a nurse practitioner or [facility] medical assistant working with me, had a face to face encounter that meets the physician face to face encounter requirements with this patient on []. Medical Complications: CVA RN For Eval/Treatment: Yes Physical Therapy For: Evalulation/Treatment Occupational Therapy For: Evaluation/Treatment Home Health Aide For: Self-care GENERAL HARDWARE SALESPERSON For: Community Resources Pt Meets Homebound Status: Poor coordination w/ amb. POST DISCHARGE ORDERS: DIET AFTER DISCHARGE: Cardiac CHECKS AFTER DISCHARGE: Checks after discharge: Check blood press - daily TREATMENT/EQUIPMENT ORDERS: Adaptive Equipment Issued: Wheelchair CERTIFICATION STATEMENT: Certification Statement: Certification Statement: Based on the above finding, I certify that this patient is confined to the home and needs intermittent fci care, physical therapy and/or speech therapy, or continues to need occupational therapy.~ This patient is under my care, and I have initiated the establishment of the plan of care.~ This patient will be followed by myself or a community physician who will periodically review the plan of care. Home Meds Reported Medications Spironolactone (SPIRONOLACTONE) 25 Mg Tablet, 25 MG PO DAILY for 05/06/20 Nitroglycerin (NITROGLYCERIN SubLingual) 0.4 Mg Tab.subl, 0.4 MG SL PRN Q5MIN PRN for CHEST PAIN, ML 05/05/20 Atorvastatin Calcium (LIPITOR) 80 Mg Tablet, 80 MG PO HS for FOR CHOLESTEROL, #30 TAB 0 Refills 05/05/20 Clopidogrel Bisulfate (CLOPIDOGREL) 75 Mg Tablet, 75 MG PO DAILY for TO PREVENT BLOOD CLOTS, #30 TAB 0 Refills 05/05/20 Metformin Hcl (METFORMIN HCL) 500 Mg Tablet, 500 MG PO BIDWMEALS for ANTI- DIABETIC, TAB 0 Refills 05/05/20 Metoprolol Succinate (METOPROLOL SUCCINATE ( XL )) 25 Mg Tab.er.24h, 75 MG PO DAILY for FOR HYPERTENSION, #30 TAB 0 Refills 05/05/20 Sacubitril/Valsartan (Entresto 49 mg-51 mg Tablet) 1 Each Tablet, 1 EACH PO BID for , TAB 05/05/20 Tamsulosin Hcl (FLOMAX) 0.4 Mg Cap.er.24h, 0.4 MG PO DAILY for , TAB 05/05/20 Quetiapine Fumarate (SEROQUEL) 25 Mg Tablet, 25 MG PO BID for , TAB 05/05/20 TARA KUNZ MD May 07, 2020 09:17
[2020-05-07] MEDS: TAMSULOSIN 0.4 MG CAP.ER.24H. PO SCH (09:23)
[2020-05-07] MEDS: METOPROLOL SUCC 24HR ER 25 MG TAB.ER.24H. PO SCH (09:24)
[2020-05-07] MEDS: SACUBITRIL/VALSARTAN 49/51MG TABLET. PO SCH (09:24)
[2020-05-07] MEDS: QUEtiapine 25 MG TABLET. PO SCH (09:24)
[2020-05-07] MEDS: CLOPIDOGREL BISULFATE 75 MG TABLET PO SCH (09:24)
--- NOTE | 2020-05-07 10:03 | NUR ---
SS following up with discharge planning. SS reviewed pt chart and discussed with pt RN. Pt is currently on room air. PT/OT recommended home with home healthcare. Pt accepted on services with [facility], ; fax [phone]. Discharge orders phoned and faxed to [facility]. Pt, pt's significant other, and pt's RN notified.
[2020-05-07 10:39] VITALS: BP 116/75
--- NOTE | 2020-05-07 11:05 | CARD ---
MR#: [id number] Date of Study: 05/07/2020 Ordering Physician: MOISES GRIMALDO, Referring Physician: MOISES GRIMALDO Tech: Rema Manning [facility] APPROVED REPORT EXAM: Two-dimensional and M-mode echocardiogram with Doppler and color Doppler. Other Information Quality : Technically LimitedHR: 85bpm Rhythm : PacemakerTechnically limited study due to body habitus, unable to position patient INDICATION Cardiomyopathy 2D DIMENSIONS Left Atrium(2D)2.6 (1.6-4.0cm)IVSd1.0 (0.7-1.1cm) Aortic Root(2D)3.2 (2.0-3.7cm)LVDd3.9 (3.9-5.9cm) LVOT Diameter2.0 (1.8-2.4cm)PWd1.0 (0.7-1.1cm) LVDs2.4 (2.5-4.0cm)FS (%) 39.6 % SV47.9 mlLVEF(%)70.7 (>50%) Aortic Valve AoV Peak Jeremy.181.0cm/sAoV VTI40.5cm AO Peak GR.13.1mmHgLVOT Peak Jeremy.84.7cm/s AO Mean GR.7mmHgAVA (VMAX)1.45cm2 AI P 1/2 [id number] Mitral Valve MV E Xkpibhng86.5cm/sMV DECEL PPUN742rh MV A Srlbruij111.0cm/sE/A Ratio0.6 Pulmonary Valve PV Peak Shamxjen04.4cm/s Tricuspid Valve TR P. Ffbyrxmv679oz/sTR Peak Gr.35mmHg LEFT VENTRICLE The left ventricle is normal size. There is normal left ventricular wall thickness. The left ventricu lar systolic function is normal. Estimated ejection fraction 55%. There is normal LV segmental wall motion. Transmitral Doppler flow pattern is Grade I-abnormal relaxation pattern. RIGHT VENTRICLE The right ventricle is normal size. There is normal right ventricular wall thickness. The right ventr icular systolic function is normal. ATRIA The left atrium size is normal. The right atrium size is normal. The interatrial septum is intact wit h no evidence for an atrial septal defect or patent foramen ovale as noted on 2-D or Doppler imaging. AORTIC VALVE The aortic valve is normal in structure and function. Doppler and Color Flow revealed mild to moderat e aortic regurgitation. There is no significant aortic valvular stenosis. MITRAL VALVE The mitral valve is normal in structure and function. There is no evidence of mitral valve prolapse. There is no mitral valve stenosis. Doppler and Color-flow revealed mild mitral regurgitation. TRICUSPID VALVE The tricuspid valve is normal in structure and function. Doppler and Color Flow revealed trace to mil d tricuspid regurgitation. Estimated PAP 38 mmHg. There is no tricuspid valve stenosis. PULMONIC VALVE The pulmonary valve is normal in structure and function. Doppler and Color Flow revealed trace pulmon ic valvular regurgitation. GREAT VESSELS The aortic root is normal in size. The ascending aorta is normal in size. The IVC is normal in size a nd collapses >50% with inspiration. PERICARDIAL EFFUSION There is no evidence of significant pericardial effusion. Critical Notification Critical Value: No <Conclusion> The left ventricular systolic function is normal. Estimated ejection fraction 55%. There is normal LV segmental wall motion. Transmitral Doppler flow pattern is Grade I-abnormal relaxation pattern. Mild to moderate aortic regurgitation. Mild mitral regurgitation. Trace to mild tricuspid regurgitation. Estimated PAP 38 mmHg. There is no evidence of significant pericardial effusion. Signed by : Greg Underwood, Electronically Approved : 05/07/2020 11:04:40
[2020-05-07] MEDS ORDERED: CYANOCOBALAMIN (VITAMIN B-12) 1,000 MCG/ML VIAL IM ONE (11:45)
--- NOTE | 2020-05-07 13:12 | PDOC ---
MOISES GRIMALDO MANUFACTURING SUPERVISOR 05/07/20 1312: CARDIO Progress Notes Date and Time Date of Service 05/07/2020 Time of Evaluation 1250 Subjective Subjective: No Chest Pain, No shortness of breath, No Palpitations Vitals Vitals Vital Signs Date Time Temp Pulse Resp B/P (MAP) Pulse Ox O2 Delivery O2 Flow Rate FiO2 05/07/20 10:39 98.5 93 18 116/75 (89) 95 Room Air 98.5 Weight Weight [ ] Input and Output Intake and Output Intake and Output 05/07/20 07:00 Intake Total 640 ml Balance 640 ml Intake Oral 640 ml # Voids 4 Laboratory Labs Laboratory Tests Test 05/06/20 16:39 05/06/20 21:15 05/07/20 06:10 05/07/20 07:55 Glucose (Fingerstick) 128 mg/dL (70-99) 148 mg/dL (70-99) 129 mg/dL (70-99) C-Reactive Protein, Quantitative < 0.5 mg/L (0-3.3) Vitamin B12 Level 276 pg/mL (247-911) Test 05/07/20 11:55 Glucose (Fingerstick) 129 mg/dL (70-99) Physical Exam HEENT: Neck Supple W Full Motion Chest: Symmetric LUNGS: Other (diminished) Heart: RRR (Sr) Abdomen: Soft N/T Extremities: No Edema, No Calf Tenderness Neurology: alert, oriented, follow commands Assessment Assessment 1. Nontraumatic fall: no reported syncope. Possibly from ataxia 2. AICD in situ: medtronic. VVI. Interrogation revealed baseline optivol with no significant arrhythmias 3. PSVT: brief bursts maintaining SR 4. Suspect vascular dementia 5. ICM: Prior EF at 30-35% and recovered currently with EF at 55% with normal WM 6. CAD; prior stents. see report. clinically stable 7. Chronic combined systolic/diastolic CHF: Class 3, compensated 8. DM2: per PCP 9. HTN: controlled 10. HLP: LDL on goal 11. Recovered Covid-19: 02/16/2020 12. 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 Hypothyroidism: TSH 28 new per PCP Recommendations 1. Continue HF home medications 2. Secondary prevention measures. Continue plavix. Continue metoprolol. 3. Nothing further cardiac ta. Follow up with cardiology Justicifation of Admission Dx: Justifications for Admission: Justification of Admission Dx: N/A ADITI SUN MD 05/07/201900: CARDIO Progress Notes Assessment Assessment Patient seen and examined. Agree with LINEN ROOM HOUSEPERSON's assessment and plan. Fall probably from imbalance, not a good historian but no definite history of syncope h/o PSVT, maintaining SR, tele without any significant arrhythmias Chronic systolic HF well compensated CAD clinically stable 2D echo showed normalized LVEF Device interrogation showed normal function OK for DC from cardiac standpoint MOISES GRIMALDO APRN May 07, 2020 13:12 ADITI SUN MD May 07, 2020 19:01
--- NOTE | 2020-05-07 17:21 | NUR ---
Discharge Note: FADI IRIZARRY Discharge instructions and discharge home medications reviewed with Spouse and a copy given. All questions have been answered and understanding verbalized. The following instructions and handouts were given: thyroid disease and new meds including B12 and the need to continue it, follow up. Patient and insisted on leaving and was threatening to leave without their paperwork if I didn't get them out of here. Discontinued lines and drains: IV removed and no lines present on discharge. Patient discharged to discharged to home. left by wheelchair to family vehicle.
--- NOTE | 2020-05-08 21:04 | PDOC ---
Provider Note Date of Service: DATE: 05/08/20 TIME: 21:03 Provider Note Discharge summary dictated.#[id number]. Justifications for Admission Other Justification TARA KUNZ MD May 08, 2020 21:03
--- NOTE | 2020-05-08 22:10 | DS ---
DATE OF DISCHARGE: 05/07/2020 REASON FOR ADMISSION TO THE HOSPITAL: Falls at home, possible CVA with ataxic gait. CONSULTATIONS: 1. Dr. Winters from Neurology. 2. Dr. Winkler from Rehab. 3. Dr. Underwood from Cardiology. PROCEDURES DONE: CT head, carotid Doppler, echocardiogram and pacemaker check. HOSPITAL COURSE: The patient is an 89-year-old male with history of pacemaker, has diabetes, hypertension and he lives at home, uses a walker usually has been fallen 2 times in last 1 week and when he walks his leaning to one side, so the patient was admitted to the hospital. CT head shows remote stroke, not a recent stroke. Carotid Doppler was negative. Echocardiogram shows a good left ventricular function. The patient has a pacemaker, which was checked, functioning good. Seen by Dr. Winkler from rehab and it was felt that he could probably discharge home with home health. FINAL DIAGNOSES: 1. 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 2. No evidence of recent stroke. 3. Old remote stroke. 4. History of heart failure, on Entresto as a pacemaker, ejection fraction improved to 55%. 5. Hypertension. 6. Hyperlipidemia. 7. Diabetes. 8. Hypothyroidism, which is new. DISPOSITION: Home. DISCHARGE MEDICATIONS: The patient is started on Synthroid 50 mcg daily and follow as an outpatient. TARA KUNZ MD DR: PORTER/johnna JOB#: [id number] / [id number]
== END 2020-05-07 13:30 | disposition home or self-care (01) ==
LOC: 2 NORTH 16:46 → INTOOBSV 16:46
PROVIDERS: ADMIT Internal Medicine; ATTEND Internal Medicine
DX: R29.6 Repeated falls (principal); I11.0 Hypertensive heart disease with heart failure; I50.22 Chronic systolic (congestive) heart failure; I25.10 Atherosclerotic heart disease of native coronary artery without angina pectoris; N40.0 Benign prostatic hyperplasia without lower urinary tract symptoms; I25.810 Atherosclerosis of coronary artery bypass graft(s) without angina pectoris; E11.40 Type 2 diabetes mellitus with diabetic neuropathy, unspecified; E03.9 Hypothyroidism, unspecified; E78.5 Hyperlipidemia, unspecified; F02.80 Dementia in other diseases classified elsewhere, unspecified severity, without behavioral disturbance, psychotic disturbance, mood disturbance, and anxiety; F20.9 Schizophrenia, unspecified; I25.2 Old myocardial infarction; G30.9 Alzheimer's disease, unspecified; I42.8 Other cardiomyopathies; M17.0 Bilateral primary osteoarthritis of knee; M47.812 Spondylosis without myelopathy or radiculopathy, cervical region; M50.30 Other cervical disc degeneration, unspecified cervical region; M54.10 Radiculopathy, site unspecified; M19.90 Unspecified osteoarthritis, unspecified site; Z86.16 Personal history of COVID-19; Z98.890 Other specified postprocedural states; Z86.73 Personal history of transient ischemic attack (TIA), and cerebral infarction without residual deficits; Z95.5 Presence of coronary angioplasty implant and graft; Z95.810 Presence of automatic (implantable) cardiac defibrillator; Z87.19 Personal history of other diseases of the digestive system; Z95.1 Presence of aortocoronary bypass graft; Z79.02 Long term (current) use of antithrombotics/antiplatelets; Z79.4 Long term (current) use of insulin
CPT/HCPCS: 36415; 70450; 71045; 72125; 80053; 80061; 81001; 82550; 82607; 82962; 83735; 83880; 84443; 85025; 86140; 93005; 93306; 93880; 96372; 97162; 97166; 97530; 97535; G0378; G0379; J1815; J3420